=== PATIENT | male | born 1955 | race Hispanic/Latino ===

== ENCOUNTER → 2023-07-02 | Emergency (ER) | payer SELFPAY ==
[~2023-07-02] MED LIST: TAMSULOSIN 0.4 MG SR CAP ONE
[2023-07-02 03:55] LABS: Absolute Lymphocytes (CBC) 1.1 K/uL (0.7-4.9); MCV 95.1 fL (80-100); MPV 7.6 fL (7.6-11.3); Platelets 275 thou/uL (152-406); RBC Red Blood Cell Count 4.63 M/uL (4.33-5.43)
[2023-07-02 04:06] LABS: Albumin 3.5 g/dL (3.4-5.0); Bilirubin Total 0.5 mg/dL (0.2-1.0); Potassium 3.5 mEq/L (3.5-5.1); Protein, Total 7.1 g/dL (6.4-8.2)
--- NOTE | 2023-07-02 04:07 | EDPHYS ---
Physician Documentation [facility] Name: Jordon Colin Age: 67 yrs Sex: Male : 1955 Arrival Date: 07/02/2023 Time: 02:41 Bed 19 Private MD: ED Physician Dave Morrell HPI: 07/02 02:50 This 67 yrs old Male presents to ER via EMS with complaints of acute urinary sp4 retention . 03:28 Is a very pleasant man who presents with EMS with acute lower abdominal pain, urinary sp4 bladder pain and acute urinary retention starting 5 hours ago. Patient states this is never happened in the past. . Historical: - Allergies: :44 No Known Allergies; km8 - Home Meds: :44 None [Active]; km8 - PMHx: :44 None; km8 - PSHx: 02:44 None; km8 - Immunization history:: Client reports receiving the 2nd dose of the Covid vaccine, Flu vaccine is not up to date. - Social history:: Smoking status: Patient reports the use of cigarette tobacco products, denies chronic smoking, but will smoke occasionally, Patient uses alcohol, occasionally. Patient/guardian denies using street drugs. - Family history:: not pertinent. ROS: 03:28 Constitutional: Negative for fever, chills, and weight loss, that of acute urinary sp4 retention, positive acute suprapubic pain 03:28 All other systems are negative, Exam: 03:28 Constitutional: This is a well developed, well nourished patient who is awake, alert, sp4 and in no acute distress. Head/Face: Normocephalic, atraumatic. Eyes: Pupils equal round and reactive to light, extra-ocular motions intact. Lids and lashes normal. Conjunctiva and sclera are not injected. Cornea within normal limits. Periorbital areas with no swelling, redness, or edema. ENT: Nares patent. No nasal discharge, no septal abnormalities noted. Tympanic membranes are normal and external auditory canals are clear. Oropharynx with no redness, swelling, or masses, exudates, or evidence of obstruction, uvula midline. Mucous membranes moist. Neck: Trachea midline, no thyromegaly or masses palpated, and no cervical lymphadenopathy. Supple, full range of motion without nuchal rigidity, or vertebral point tenderness. Chest/axilla: Normal chest wall appearance and motion. Nontender with no deformity. No lesions are appreciated. Cardiovascular: Regular rate and rhythm with a normal S1 and S2. No gallops, murmurs, or rubs. Normal PMI, no JVD. No pulse deficits. Respiratory: Lungs have equal breath sounds bilaterally, clear to auscultation and percussion. No rales, rhonchi or wheezes noted. No increased work of breathing, no retractions or nasal flaring. Abdomen/GI: Soft, non-tender, with normal bowel sounds. No distension or tympany. No guarding or rebound. No evidence of tenderness throughout. Back: No spinal tenderness. No costovertebral tenderness. Skin: Warm, dry with normal turgor. Normal color with no rashes, no lesions, and no evidence of cellulitis. MS/ Extremity: Pulses equal, no cyanosis. Neurovascular intact. Full, normal range of motion. Neuro: Awake and alert, GCS 15, oriented to person, place, time, and situation. Cranial nerves II-XII grossly intact. Motor strength 5/5 in all extremities. Sensory grossly intact. Psych: Awake, alert, with orientation to person, place and time. Behavior, mood, and affect are within normal limits Vital Signs: 02:42 BP 188 / 128; Pulse 107; Resp 20; Temp 100(TE); Pulse Ox 99% on R/A; Pain 8/10; km8 02:45 BP 141 / 89; Pulse 89; Resp 18; Pulse Ox 96% on R/A; km8 03:00 BP 140 / 82; Pulse 85; Resp 18; Pulse Ox 98% on R/A; km8 04:00 BP 127 / 81; Pulse 78; Resp 16; Pulse Ox 95% on R/A; km8 02:42 Pain Scale: Adult km8 Ephraim Coma Score: 02:45 Eye Response: spontaneous(4). Motor Response: obeys commands(6). Verbal Response: km8 oriented(5). Total: 15. Procedures: 03:29 Alcocer cath inserted by myself - 18 Fr. Returned clear yellow urine. Urine output = 1000 sp4 ml's. Patient tolerated well. MDM: 02:52 Patient medically screened. sp4 04:04 Differential Diagnosis altered mental status, sepsis, flu, BPH, acute urinary sp4 retention. Data reviewed: vital signs, nurses notes, EMS record, old medical records, lab test result(s), CBC, electrolytes. ED course: Patient has obtained instant relief after Alcocer catheter was placed. Patient will be given leg bag and advised to keep Alcocer catheter also will prescribe Flomax daily. Will advised to see urologist Dr. Mcleod in 2 weeks for voiding trial in the office.. 07/02 02:51 Order name: CBC with Diff; Complete Time: 04:03 sp4 07/02 02:51 Order name: CMP; Complete Time: 04:08 sp4 07/02 02:51 Order name: Alcocer; Complete Time: 03:00 sp4 07/02 02:51 Order name: Saline Lock; Complete Time: 03:06 sp4 Administered Medications: 02:59 Drug: Flomax PO 0.4 mg PO once Route: PO; km8 04:07 Follow up: Response: No adverse reaction km8 03:00 Not Given (Physician Discretion): clonidine0.2 mg PO once km8 Disposition Summary: 07/02/23 04:06 Discharge Ordered Problem: new sp4 Symptoms: have improved sp4 Condition: Stable sp4 Diagnosis - Disorder of urinary system, unspecified sp4 - Acute urinary retention sp4 Followup: sp4 - With: Ghassan Mcleod MD - When: 10 - 14 days - Reason: Recheck today's complaints Discharge Instructions: - Discharge Summary Sheet sp4 - Acute Urinary Retention, Male, [id number] sp4 - Indwelling Urinary Catheter Care, Adult, [id number] sp4 Forms: - Patient Portal Instructions sp4 Prescriptions: - Flomax 0.4 mg Oral capsule - take 1 capsule ORAL route daily for 30 days; 30 capsule; Refills: 0, Product sp4 Selection Permitted Signatures: Dispatcher MedHoDave Minaya MD MD sp4 Nicole Hyde RN RN km8
--- NOTE | 2023-07-02 04:07 | ER ---
Nurse's Notes [facility] Name: Jordon Colin Age: 67 yrs Sex: Male : 1955 Arrival Date: 07/02/2023 Time: 02:41 Bed 19 Private MD: Diagnosis: Disorder of urinary system, unspecified;Acute urinary retention Presentation: 07/02 02:42 Chief complaint: EMS states: toned out for pt unable to urinate for 5 hours and bladder km8 pain. Coronavirus screen: Client denies travel out of the [place] in the last 14 days. Ebola Screen: No symptoms or risks identified at this time. Initial Sepsis Screen: Does the patient meet any 2 criteria? HR > 90 bpm. Does the patient have a suspected source of infection? No. Patient's initial sepsis screen is negative. Risk Assessment: Do you want to hurt yourself or someone else? Patient reports no desire to harm self or others. Onset of symptoms was July 01, 2023 at 21:00. 02:42 Method Of Arrival: EMS: [facility] 8 02:42 Acuity: DIANNA 3 km8 Triage Assessment: 02:44 General: Appears uncomfortable, Behavior is appropriate for age, restless. Pain: km8 Complains of pain in suprapubic area Pain currently is 8 out of 10 on a pain scale. EENT: No signs and/or symptoms were reported regarding the EENT system. Neuro: Level of Consciousness is awake, alert, obeys commands, Oriented to person, place, time, situation. Cardiovascular: Denies chest pain, shortness of breath, Capillary refill < 3 seconds Patient's skin is warm and dry. Respiratory: Airway is patent Respiratory effort is even, labored, Respiratory pattern is regular, symmetrical. : Reports inability to void, since 5 hours ago pain in suprapubic area. Derm: No signs and/or symptoms reported regarding the dermatologic system. Skin is intact, is healthy with good turgor, Skin is dry, Skin is pink, warm \T\ dry. normal, Skin temperature is warm. Musculoskeletal: No signs and/or symptoms reported regarding the musculoskeletal system. Range of motion: intact in all extremities. Historical: - Allergies: 02:44 No Known Allergies; km8 - Home Meds: 02:44 None [Active]; km8 - PMHx: 02:44 None; km8 - PSHx: 02:44 None; km8 - Immunization history:: Client reports receiving the 2nd dose of the Covid vaccine, Flu vaccine is not up to date. - Social history:: Smoking status: Patient reports the use of cigarette tobacco products, denies chronic smoking, but will smoke occasionally, Patient uses alcohol, occasionally. Patient/guardian denies using street drugs. - Family history:: not pertinent. Screenin:45 [facility] ED Fall Risk Assessment (Adult) History of falling in the last 3 months, km8 including since admission No falls in past 3 months (0 pts) Confusion or Disorientation No (0 pts) Intoxicated or Sedated No (0 pts) Impaired Gait No (0 pts) Mobility Assist Device Used No (0 pt) Altered Elimination No (0 pt) Score/Fall Risk Level 0 - 2 = Low Risk Oriented to surroundings, Maintained a safe environment, Educated pt \T\ family on fall prevention, incl call for assistance when getting out of bed, Assessed \T\ reinforced patient's understanding of fall precautions. Abuse screen: Denies threats or abuse. Denies injuries from another. Nutritional screening: No deficits noted. Tuberculosis screening: No symptoms or risk factors identified. Assessment: 02:45 General: see triage assessment/notes. [facility] 03:00 Reassessment: Patient appears in no apparent distress at this time. Patient and/or 8 family updated on plan of care and expected duration. Pain level reassessed. Patient is alert, oriented x 3, equal unlabored respirations, skin warm/dry/pink. Patient states feeling better. Patient states symptoms have improved. Pain: Denies pain. Respiratory: Airway is patent Respiratory effort is even, unlabored, Respiratory pattern is regular, symmetrical. : Reports bladder pain resolved. 04:00 Reassessment: Patient appears in no apparent distress at this time. No changes from [facility] previously documented assessment. Patient and/or family updated on plan of care and expected duration. Pain level reassessed. Patient is alert, oriented x 3, equal unlabored respirations, skin warm/dry/pink. Vital Signs: 02:42 BP 188 / 128; Pulse 107; Resp 20; Temp 100(TE); Pulse Ox 99% on R/A; Pain 8/10; km8 02:45 BP 141 / 89; Pulse 89; Resp 18; Pulse Ox 96% on R/A; km8 03:00 BP 140 / 82; Pulse 85; Resp 18; Pulse Ox 98% on R/A; km8 04:00 BP 127 / 81; Pulse 78; Resp 16; Pulse Ox 95% on R/A; km8 02:42 Pain Scale: Adult km8 Goodman Coma Score: 02:45 Eye Response: spontaneous(4). Motor Response: obeys commands(6). Verbal Response: km8 oriented(5). Total: 15. ED Course: 02:42 Patient arrived in ED. km8 02:44 Triage completed. km8 02:44 Arm band placed on right wrist. km8 02:45 Patient has correct armband on for positive identification. Bed in low position. Call km8 light in reach. Side rails up X 1. Pulse ox on. NIBP on. 02:45 Patient maintains SpO2 saturation greater than 95% on room air. km8 02:46 Gamez cath inserted, using sterile technique, 18 Fr., by ED staff, balloon inflated, to km8 gravity drainage, returned clear yellow urine. Patient tolerated well. 02:47 No provider procedures requiring assistance completed. km8 02:48 Nicole Hyde, LALITA is Primary Nurse. km8 02:50 Dave Morrell MD is Attending Physician. sp4 03:05 Inserted saline lock: 20 gauge in right hand, using aseptic technique. Blood collected. km8 03:16 CBC with Diff Sent. oe 03:16 CMP Sent. oe 04:05 Ghassan Mcleod MD is Referral Physician. sp4 04:30 Provided Education on: gamez care/teaching. km8 04:30 IV discontinued, intact, bleeding controlled, No redness/swelling at site. Pressure km8 dressing applied. Administered Medications: 02:59 Drug: Flomax PO 0.4 mg PO once Route: PO; km8 04:07 Follow up: Response: No adverse reaction km8 03:00 Not Given (Physician Discretion): clonidine0.2 mg PO once km8 Medication: 02:45 VIS not applicable for this client. km8 Output: 03:12 Urine: 1000ml (Gamez); Total: 1000ml. km8 04:30 Urine: 900ml (Gamez); Total: 1900ml. km8 Outcome: 04:06 Discharge ordered by . spGil 04:30 Discharged to home ambulatory, km8 04:30 Condition: good 04:30 Discharge instructions given to patient, Instructed on discharge instructions, follow up and referral plans. medication usage, gamez catheter care Demonstrated understanding of instructions, follow-up care, medications, gamez catheter care Prescriptions given X 1, 04:31 Patient left the ED. km8 Signatures: Anand Foley Sergey, MD MD sp4 Nicole Hyde RN RN km8 Corrections: (The following items were deleted from the chart) 03:06 02:46 Patient did not have IV access during this emergency room visit. km8 km8
[2023-07-02 04:46] VITALS: BP 127/81; TEMP 100; O2SAT 95
== END ==
LOC: ER 02:41
DX: R33.9 Retention of urine, unspecified (principal)
CPT/HCPCS: 36415; 80053; 85025

== ENCOUNTER → 2023-07-05 | Emergency (ER) | payer SELFPAY ==
--- NOTE | 2023-07-05 09:27 | ER ---
Nurse's Notes [facility] Name: Jordon Colin Age: 67 yrs Sex: Male : 1955 Arrival Date: 07/05/2023 Time: 09:06 Bed 7 Private MD: Diagnosis: UTI, hematuria Presentation: 07/05 09:18 Chief complaint: Patient states: Just discharged from ER after having a gamez inserted. ss Pt reports that now he is having bleeding into his gamez bag and at the tip of his penis. Coronavirus screen: Client denies travel out of the [place] in the last 14 days. Ebola Screen: Patient denies exposure to infectious person. Patient denies travel to an Ebola-affected area in the 21 days before illness onset. Initial Sepsis Screen: Does the patient meet any 2 criteria? No. Patient's initial sepsis screen is negative. Does the patient have a suspected source of infection? No. Patient's initial sepsis screen is negative. Risk Assessment: Do you want to hurt yourself or someone else? Patient reports no desire to harm self or others. Onset of symptoms was July 05, 2023. 09:18 Method Of Arrival: Ambulatory 09:18 Acuity: DIANNA 3 ss Historical: - Allergies: 09:20 No Known Allergies; ss - Immunization history:: Adult Immunizations up to date. - Social history:: Smoking status: Patient denies any tobacco usage or history of. Patient/guardian denies using alcohol. Screenin:01 [facility] ED Fall Risk Assessment (Adult) History of falling in the last 3 months, ld1 including since admission No falls in past 3 months (0 pts). Abuse screen: Denies threats or abuse. Denies injuries from another. Abuse screen: Denies threats or abuse. Nutritional screening: No deficits noted. Tuberculosis screening: No symptoms or risk factors identified. Assessment: 10:01 Reassessment: See triage assessment. Pain: Denies pain. ld1 Vital Signs: 09:18 BP 132 / 81; Pulse 95; Resp 16; Temp 98(O); Pulse Ox 96% ; Weight 79.38 kg; Height 5 ss ft. 4 in. ; Pain 10/10; 09:18 Body Mass Index 30.04 (79.38 kg, 162.56 cm) 09:18 Pain Scale: Adult ss ED Course: 09: Patient arrived in ED. mg5 09:09 Melida Adams FNP-C is PHCP. snw 09:09 Reilly Chambers MD is Attending Physician. snw 09:20 Triage completed. ss 09:20 Arm band placed on left wrist. ss 09:26 Ghassan Mcleod MD is Referral Physician. sp3 10:01 Patient has correct armband on for positive identification. Bed in low position. Call ld1 light in reach. Side rails up X2. Pulse ox on. NIBP on. Door closed. Noise minimized. Warm blanket given. 10:01 No provider procedures requiring assistance completed. Patient did not have IV access ld1 during this emergency room visit. Administered Medications: No medications were administered Medication: : VIS not applicable for this client. ld1 Outcome: : Discharge ordered by . sp3 10:02 Discharged to home via wheelchair, with family, ld1 10:02 Condition: stable 10:02 Discharge instructions given to patient, family, Instructed on discharge instructions, follow up and referral plans. Demonstrated understanding of instructions, follow-up care, 10:03 Patient left the ED. ld1 Signatures: Melida Adams FNP-C [facility] [facility] Georgette Harris RN RN Chiquita James RN RN ld1 Reilly Chambers MD MD sp3 Concetta Iqbal mg5
--- NOTE | 2023-07-05 09:27 | EDPHYS ---
Physician Documentation [facility] Name: Jordon Colin Age: 67 yrs Sex: Male : 1955 Arrival Date: 07/05/2023 Time: 09:06 Bed 7 Private MD: ED Physician eRilly Chambers HPI: 07/05 09:24 This 67 yrs old Male presents to ER via Ambulatory with complaints of Penile sp3 Bleeding. 09:24 59-year-old male who returns after recent discharge for mild bleeding around the Alcocer sp3 catheter. That was his initial complaint on his visit yesterday. Please see chart from earlier visit during which she was seen by both Dr. Riojas and myself.. Historical: - Allergies: 09:20 No Known Allergies; ss - Immunization history:: Adult Immunizations up to date. - Social history:: Smoking status: Patient denies any tobacco usage or history of. Patient/guardian denies using alcohol. ROS: 09:24 All other systems are negative, sp3 Exam: 09:24 Constitutional: This is a well developed, well nourished patient who is awake, alert, sp3 and in no acute distress. Abdomen/GI: Soft, non-tender, with normal bowel sounds. No distension or tympany. No guarding or rebound. No evidence of tenderness throughout. Back: No spinal tenderness. No costovertebral tenderness. Full range of motion. Skin: Warm, dry with normal turgor. Normal color with no rashes, no lesions, and no evidence of cellulitis. 09:24 : Mild amount of blood around the Alcocer and blood-tinged urine present in the Alcocer bag. , Vital Signs: 09:18 BP 132 / 81; Pulse 95; Resp 16; Temp 98(O); Pulse Ox 96% ; Weight 79.38 kg; Height 5 ss ft. 4 in. ; Pain 10/10; 09:18 Body Mass Index 30.04 (79.38 kg, 162.56 cm) ss 09:18 Pain Scale: Adult ss MDM: 09:16 Patient medically screened. sp3 09:26 Data reviewed: vital signs, nurses notes, old medical records. ED course: I advised sp3 patient that he needs to follow-up with urology and return for any inability to void or significant bleeding. Alcocer bag will be adjusted to allow better ambulation and comfort to patient.. Administered Medications: No medications were administered Disposition Summary: 07/05/23 09:26 Discharge Ordered Notes: Location: Home sp3 Condition: Stable sp3 Diagnosis - UTI, hematuria sp3 Followup: sp3 - With: Ghassan Mcleod MD - When: Upon discharge from the Emergency Department - Reason: Recheck today's complaints Discharge Instructions: - Discharge Summary Sheet sp3 - Hematuria, Adult sp3 - Urinary Tract Infection, Adult sp3 Forms: - Medication Reconciliation Form sp3 - Thank You Letter sp3 - Antibiotic Education sp3 - Prescription Opioid Use sp3 - Patient Portal Instructions sp3 - Leadership Thank You Letter sp3 Signatures: Georgette Harris RN RN ss Chiquita James RN RN ld1 Reilly Chambers MD MD sp3 Corrections: (The following items were deleted from the chart) 09:26 09:24 : Mild amount of blood around the Alcocer and blood-tinged urine present in the sp3 Alcocer bag. I advised patient that he needs to follow-up with urology and return for any inability to void or significant bleeding. Alcocer bag will be adjusted to allow better ambulation and comfort to patient., sp3
[2023-07-05 10:16] VITALS: BP 132/81; TEMP 98; O2SAT 96
== END ==
LOC: ER 09:06
DX: N39.0 Urinary tract infection, site not specified (principal)

== ENCOUNTER → 2023-07-05 | Emergency (ER) | payer SELFPAY ==
[~2023-07-05] MED LIST changes: +CEFTRIAXONE 1000 MG/VIAL ONE; +MORPHINE 4 MG/ML SYR ONE; +NA CHLORIDE 0.9% 50 ML ONE; +ONDANSETRON 4 MG/2 ML VIAL ONE; -TAMSULOSIN 0.4 MG SR CAP ONE
[2023-07-05 06:51] LABS: Absolute Lymphocytes (CBC) 1.7 K/uL (0.7-4.9); Hematocrit 44.9 % (39.6-49.0); Lymphocytes % 12.7 % (15.3-44.8); MCV 95.8 fL (80-100); MPV 7.5 fL (7.6-11.3); Platelets 291 thou/uL (152-406); RBC Red Blood Cell Count 4.68 M/uL (4.33-5.43)
[2023-07-05 06:58] LABS: Protime INR 1.26
[2023-07-05 07:03] LABS: Potassium 3.6 mEq/L (3.5-5.1)
[2023-07-05 07:04] LABS: Specific Gravity 1.025 (1.005-1.030); Transitional Epithelial <5 /HPF (None Seen); Urine Bacteria >50 /HPF (<20); Urine Bilirubin NEGATIVE (Negative); Urine Blood 3+ (OVER) (Negative); Urine Clarity Extremely Turbid (Clear); Urine Color Dark-Brown (Yellow); Urine Glucose NEGATIVE (Negative); Urine Mucus 4+ /HPF (None Seen); Urine Protein 3+ (Negative); Urine RBC >50 /HPF (None Seen); Urine Urobilinogen Normal (Normal); Urine pH 6.5 (5.0-7.0)
--- NOTE | 2023-07-05 07:20 | EDPHYS ---
Physician Documentation [facility] Name: Jordon Colin Age: 67 yrs Sex: Male : 1955 Arrival Date: 07/05/2023 Time: 06:11 Bed 19 Private MD: ED Physician Reilly Chambers HPI: 07/05 06:24 This 67 yrs old Male presents to ER via Unassigned with complaints of Penile rn Bleeding. 06:24 The patient presents with a Gamez catheter problem, draining bloody urine, urinary rn symptoms, retention. Onset: The symptoms/episode began/occurred last night. Modifying factors: The symptoms are alleviated by nothing, the symptoms are aggravated by nothing. Severity of symptoms: At their worst the symptoms were mild, in the emergency department the symptoms are unchanged. The patient has not experienced similar symptoms in the past. The patient has been recently seen at the [facility] Emergency Department. Pt reports blood in gamez leg bag, as of last night, no trauma. No fever. Now this morning, less urine output and pain. Not on blood thinners. . Historical: - Allergies: 06:27 No Known Allergies; jb4 - PMHx: 06:27 None; jb4 - PSHx: 06:27 None; jb4 - Immunization history:: Adult Immunizations unknown. - Social history:: Smoking status: Patient denies any tobacco usage or history of. - Family history:: not pertinent. - Hospitalizations: : No recent hospitalization is reported. ROS: 06:24 Constitutional: Negative for fever, chills, and weight loss, Cardiovascular: Negative rn for chest pain, palpitations, and edema, Respiratory: Negative for shortness of breath, cough, wheezing, and pleuritic chest pain, Abdomen/GI: Negative for abdominal pain, nausea, vomiting, diarrhea, and constipation, : Positive for hematuria and difficulty urinating Exam: 06:24 Constitutional: This is a well developed, well nourished patient who is awake, alert, rn and in no acute distress. Abdomen/GI: Soft, nontender, nondistended Male : Gamez catheter in place with blood at urethral meatus and in leg bag. No clots noted. Appears to be more urine than blood in bag Vital Signs: 06:25 BP 160 / 89; Pulse 87; Resp 18; Temp 97.8; Pulse Ox 98% on R/A; oe 06:25 Weight 77.11 kg (R); Height 5 ft. 4 in. ; jb4 07:00 BP 153 / 90; Pulse 79; Resp 18; Pulse Ox 97% on R/A; db 06:25 Body Mass Index 29.18 (77.11 kg, 162.56 cm) jb4 MDM: 06:15 Patient medically screened. rn 07:18 Data reviewed: vital signs, nurses notes, lab test result(s). ED course: Patient taken sp3 over by me from Dr. Riojas with UA pending. UA demonstrates positive infection with WBCs and bacteria. Will give Rocephin 1 g IV and discharge patient home on p.o. antibiotics. Follow-up with patient's PCP and urology as needed.. 07/05 06:23 Order name: CBC with Diff; Complete Time: 06:58 rn 07/05 06:23 Order name: Basic Metabolic Panel; Complete Time: 07:13 rn 07/05 06:23 Order name: Protime (+inr); Complete Time: 06:58 rn 07/05 06:23 Order name: Ptt, Activated; Complete Time: 06:58 rn 07/05 06:23 Order name: Urinalysis w/ reflexes; Complete Time: 07:13 rn / 07:13 Order name: Urine Culture EDIL 07/05 06:23 Order name: IV Start; Complete Time: 07:04 rn 07/05 06:23 Order name: Bladder Irrigation; Complete Time: 07:04 rn Administered Medications: 07:04 Drug: morphine IVP or IV 4 mg IVP once over 4 mins Route: IVP; Infused Over: 4 mins; tm6 Site: right antecubital; 07:48 Follow up: Response: No adverse reaction db 07:04 Drug: Ondansetron IVP 4 mg IVP once; over 2 minutes Route: IVP; Site: right antecubital;tm6 07:48 Follow up: Response: No adverse reaction db 07:25 Drug: Rocephin IV 1 grams IV at bolus once; Given slow IV push per pharmacy db instructions Route: IV; Rate: bolus; Site: right forearm; 07:48 Follow up: Response: No adverse reaction; IV Status: Completed infusion; IV Intake: 50mldb Disposition Summary: 07/05/23 07:19 Discharge Ordered Notes: Location: Home sp3 Condition: Stable sp3 Diagnosis - UTI, Gamez catheter dysfunction sp3 Followup: sp3 - With: Private Physician - When: Upon discharge from the Emergency Department - Reason: Recheck today's complaints Discharge Instructions: - Discharge Summary Sheet sp3 - Indwelling Urinary Catheter Care, Adult sp3 - Urinary Tract Infection, Adult sp3 Forms: - Medication Reconciliation Form sp3 - Thank You Letter sp3 - Antibiotic Education sp3 - Prescription Opioid Use sp3 - Patient Portal Instructions sp3 - Leadership Thank You Letter sp3 Prescriptions: - Cipro 500 mg Oral Tablet - take 1 tablet ORAL route every 12 hours for 10 days; 20 tablet; Refills: 0, sp3 Product Selection Permitted Signatures: Dispatcher [employer] EDJulián Quinonez MD MD rn Bryson, James, RN RN jb4 Reilly Chambers MD MD sp3 Daniela Armstrong RN RN db Ameena Pollack RN RN tm6 Corrections: (The following items were deleted from the chart) 06:27 06:27 PSHx: Unable to Obtain; jb4 jb4
--- NOTE | 2023-07-05 07:20 | ER ---
Nurse's Notes [facility] Name: Jordon Colin Age: 67 yrs Sex: Male : 1955 Arrival Date: 07/05/2023 Time: 06:11 Bed 19 Private MD: Diagnosis: UTI, Emerson catheter dysfunction Presentation: 07/05 06:25 Chief complaint: Patient states: I got a emerson put in 3 days ago and now I am having jb4 blood in my urine, pain at the tip of my penis and bleeding from the tip of my penis. Coronavirus screen: At this time, the client does not indicate any symptoms associated with coronavirus-19. Ebola Screen: No symptoms or risks identified at this time. Initial Sepsis Screen: Does the patient meet any 2 criteria? No. Patient's initial sepsis screen is negative. Does the patient have a suspected source of infection? No. Patient's initial sepsis screen is negative. Risk Assessment: Do you want to hurt yourself or someone else? Patient reports no desire to harm self or others. Onset of symptoms was July 05, 2023. Transition of care: patient was not received from another setting of care. 06:25 Method Of Arrival: Wheelchair jb4 06:25 Acuity: DIANNA 3 jb4 Historical: - Allergies: 06:27 No Known Allergies; jb4 - PMHx: 06:27 None; jb4 - PSHx: 06:27 None; jb4 - Immunization history:: Adult Immunizations unknown. - Social history:: Smoking status: Patient denies any tobacco usage or history of. - Family history:: not pertinent. - Hospitalizations: : No recent hospitalization is reported. Screenin:37 [facility] ED Fall Risk Assessment (Adult) History of falling in the last 3 months, tm6 including since admission No falls in past 3 months (0 pts). Abuse screen: Denies threats or abuse. Denies injuries from another. Nutritional screening: No deficits noted. Tuberculosis screening: No symptoms or risk factors identified. Assessment: 06:37 General: Appears uncomfortable, Behavior is calm, cooperative. Pain: Complains of pain tm6 in groin Pain currently is 10 out of 10 on a pain scale. Pain began 2-3 days ago. Neuro: Level of Consciousness is awake, alert, obeys commands, Oriented to person, place, time, situation. Cardiovascular: Capillary refill < 3 seconds Patient's skin is warm and dry. Respiratory: Airway is patent Respiratory effort is even, unlabored, Respiratory pattern is regular, symmetrical. GI: Abdomen is flat, non-distended. : Emerson in place blood in urine Reports pain at penis. EENT: No signs and/or symptoms were reported regarding the EENT system. Derm: No signs and/or symptoms reported regarding the dermatologic system. Musculoskeletal: No signs and/or symptoms reported regarding the musculoskeletal system. 07:00 Reassessment: Patient appears in no apparent distress at this time. Patient and/or db family updated on plan of care and expected duration. Pain level reassessed. Patient is alert, oriented x 3, equal unlabored respirations, skin warm/dry/pink. PATIENT BLADDER IRRIGATED AND EMERSON CHANGED BY NIGHT STAFF . PT IN NAD. 07:50 Reassessment: Patient appears in no apparent distress at this time. Patient and/or db family updated on plan of care and expected duration. Pain level reassessed. Patient is alert, oriented x 3, equal unlabored respirations, skin warm/dry/pink. Patient states feeling better. Patient states symptoms have improved. Vital Signs: 06:25 BP 160 / 89; Pulse 87; Resp 18; Temp 97.8; Pulse Ox 98% on R/A; oe 06:25 Weight 77.11 kg (R); Height 5 ft. 4 in. ; jb4 07:00 BP 153 / 90; Pulse 79; Resp 18; Pulse Ox 97% on R/A; db 06:25 Body Mass Index 29.18 (77.11 kg, 162.56 cm) jb4 ED Course: 06:15 Patient arrived in ED. jb4 06:15 Julián Riojas MD is Attending Physician. rn 06:16 Ameena Pollack RN is Primary Nurse. tm6 06:27 Triage completed. jb4 06:27 Arm band placed on right wrist. jb4 06:37 Patient has correct armband on for positive identification. Placed in gown. Bed in low tm6 position. Call light in reach. Side rails up X2. Provided Education on: plan of care. Client placed on continuous cardiac and pulse oximetry monitoring. NIBP monitoring applied. 07:05 Inserted saline lock: 20 gauge in right antecubital area, using aseptic technique. tm6 07:05 Bladder irrigated via Emerson with 250 ml normal saline returned yellow urine Patient tm6 tolerated well. 07:06 Emerson cath inserted, using sterile technique, 18 Fr., balloon inflated, to gravity tm6 drainage. 07:07 Attending Physician role handed off by Julián Riojas MD sp3 07:07 Reilly Chambers MD is Attending Physician. sp3 07:48 No provider procedures requiring assistance completed. IV discontinued, intact, db bleeding controlled, No redness/swelling at site. Administered Medications: 07:04 Drug: morphine IVP or IV 4 mg IVP once over 4 mins Route: IVP; Infused Over: 4 mins; tm6 Site: right antecubital; 07:48 Follow up: Response: No adverse reaction db 07:04 Drug: Ondansetron IVP 4 mg IVP once; over 2 minutes Route: IVP; Site: right antecubital;tm6 07:48 Follow up: Response: No adverse reaction db 07:25 Drug: Rocephin IV 1 grams IV at bolus once; Given slow IV push per pharmacy db instructions Route: IV; Rate: bolus; Site: right forearm; 07:48 Follow up: Response: No adverse reaction; IV Status: Completed infusion; IV Intake: 50mldb Medication: 06:37 VIS not applicable for this client. tm6 Intake: 07:48 IV: 50ml; Total: 50ml. db Outcome: 07:19 Discharge ordered by . sp3 07:48 Discharged to home ambulatory, with family, db 07:48 Condition: stable 07:48 Discharge instructions given to patient, family, Instructed on discharge instructions, follow up and referral plans. Prescriptions given X 1, 07:51 Patient left the ED. db Signatures: Julián Riojas MD MD rn Bryson, James RN RN jb4 Anand Foley Setul, MD MD sp3 Daniela Armstrong RN RN db Ameena Pollack RN RN tm6 Corrections: (The following items were deleted from the chart) 06:27 06:27 PSHx: Unable to Obtain; jb4 jb4
[2023-07-05 08:26] VITALS: BP 153/90; TEMP 97.8; O2SAT 97
== END ==
LOC: ER 06:11
DX: N39.0 Urinary tract infection, site not specified (principal); T83.098A Other mechanical complication of other urinary catheter, initial encounter
CPT/HCPCS: 36415; 80048; 81001; 85025; 85610; 85730; 87086; 87088; J0696; J2405